=== PATIENT | male | born 1975 | race Caucasian/White ===

== ENCOUNTER 2018-06-16 13:33 | Emergency (ER) | payer SELFPAY ==
[2018-06-16] MEDS ORDERED: LIDOCAINE 1% (MPF) 5 ML VIAL INJ (15:00)
== END 2018-06-16 16:06 | disposition home or self-care (01) ==
LOC: FTE 13:33
DX: H66.002 Acute suppurative otitis media without spontaneous rupture of ear drum, left ear (principal)
CPT/HCPCS: 10060; 99283-25